=== PATIENT | female | born 1970 | race Caucasian/White ===

== ENCOUNTER 2019-06-26 09:32 | Emergency (ER) | payer OTHER ==
[~2019-06-26] VITALS: Ht 165.1 cm; Wt 79.4 kg
[2019-06-26] MEDS ORDERED: ADDERALL 30 MG30 MG PO (09:52)
[2019-06-26] MEDS ORDERED: CYMBALTA60 MG PO (09:52)
[2019-06-26] MEDS ORDERED: PREMPRO 0.45-11 EACH PO (09:54)
[2019-06-26] MEDS ORDERED: AJOVY225 MG/1.5 SUBQ (09:55)
[2019-06-26 11:30] VITALS: BP 124/85
== END 2019-06-26 11:30 | disposition home or self-care (01) ==
LOC: ER 09:32
DX: J06.9 Acute upper respiratory infection, unspecified (principal); M79.18 Myalgia, other site; Z88.0 Allergy status to penicillin; Z79.899 Other long term (current) drug therapy; Z98.890 Other specified postprocedural states; Z90.710 Acquired absence of both cervix and uterus